=== PATIENT | male | born 1945 | race Caucasian/White ===

== ENCOUNTER 2021-04-18 17:11 | Outpatient (REF) | payer MEDICARE, BC, SELFPAY ==
[2021-04-21 08:57] LABS: PSA, Diagnostic 0.2 ng/mL
== END 2021-04-18 17:12 | disposition home or self-care (01) ==
LOC: NCHCN 17:11
PROVIDERS: Visit Provider Family Medicine
DX: Z85.46 Personal history of malignant neoplasm of prostate (principal)
CPT/HCPCS: 84153

== ENCOUNTER 2021-05-23 17:19 | Outpatient (REF) | payer MEDICARE, BC, SELFPAY ==
[2021-05-23 14:58] LABS: Anion Gap 9.1 mmol/L (3-11); BUN 16 mg/dL (7-18); CO2 26.9 mmol/L (21.0-32.0); CREATININE 0.9 mg/dL (0.70-1.30); Chloride 106 mmol/L (98-107); Glucose 160 mg/dL (74-106); Potassium 4.1 mmol/L (3.5-5.1); Sodium 142 mmol/L (136-145)
== END 2021-05-23 17:20 | disposition home or self-care (01) ==
LOC: NCHCN 17:19
PROVIDERS: Visit Provider Family Medicine
DX: E11.43 Type 2 diabetes mellitus with diabetic autonomic (poly)neuropathy (principal); E78.5 Hyperlipidemia, unspecified; I10 Essential (primary) hypertension
CPT/HCPCS: 80048

== ENCOUNTER 2022-04-09 01:46 | Outpatient (CLI) | payer MEDICARE, BC, SELFPAY ==
--- OUTSIDE RECORDS SUMMARY | 2022-04-09 01:50 | XMS_ITS | Encounter Summary ---
:1945 Author Organization [facility] Address [address] [place] [address] Care Team Providers Name Role Phone Unavailable Primary Care Provider Unavailable Encounter Details Date Type Department Care Team Description 04/08/2022 Lab Requisition [facility] Outr Resulting Lab, Pathology & Laboratory Provider [facility] [address] [place] [address] Social History Tobacco Use Types Packs/Day Years Used Date Never Assessed Sex Assigned at Date Recorded Not on file documented as of this encounter Plan of Treatment Not on filedocumented as of this encounter Procedures Procedure Name Priority Date/Time Associated Diagnosis Comme nts TESTOSTERONE Routine 04/08/2022 11:20 EDT Results for this procedure are i n the results section . documented in this encounter Results TESTOSTERONE (04/08/2022 11:20 EDT) Pathologist Sig nature Testosterone 471 229 - 902 ng/dL [facility] Specimen Blood - Venous blood (substance) Narrative [facility] - 04/08/2022 23:11 EDT The results of this assay can be falsely elevated due to the consumption of Biotin. Performing Organization Address City/State/ZIP Code Phon e Number [facility] [address] [place] [address] SERVICES documented in this encounter Visit Diagnoses Not on filedocumented in this encounter
--- OUTSIDE RECORDS SUMMARY | 2022-04-09 01:50 | XMS_ITS | Encounter Summary ---
:1945 Author Organization [facility] Address [address] [place] [address] Care Team Providers Name Role Phone Unavailable Primary Care Provider Unavailable Encounter Details Date Type Department Care Team Description 04/19/2021 Lab Requisition [facility] Outr Resulting Lab, Pathology & Laboratory Provider [facility] [address] [place] [address] Social History Tobacco Use Types Packs/Day Years Used Date Never Assessed Sex Assigned at Date Recorded Not on file documented as of this encounter Plan of Treatment Not on filedocumented as of this encounter Procedures Procedure Name Priority Date/Time Associated Comments Diagnosis PSA TOTAL, Routine 04/18/2021 14:35 Results for this DIAGNOSTIC EDT procedure are i n the results section. documented in this encounter Results PSA TOTAL, DIAGNOSTIC (04/18/2021 14:35 EDT) Pathologist Sig nature PSA 0.2 ng/mL [facility] Specimen Blood - Venous blood (substance) Narrative [facility] - 04/21/2021 8:53 EDT NOTE: Serum PSA concentration should not be in terpreted as absolute evidence for the presence or absence of malignant disease. Assayed on Siemens ADVIA Centaur XPT usi ng chemiluminescent technology.??Values obtained by using different assay methods cannot be used interchangeably. Performing Organization Address City/State/ZIP Code Phon e Number [facility] [address] [place] [address] SERVICES documented in this encounter Visit Diagnoses Not on filedocumented in this encounter
--- OUTSIDE RECORDS SUMMARY | 2022-04-09 01:50 | XMS_ITS | Encounter Summary ---
:1945 [place] [address] Care Team Providers Name Role Phone Unavailable Primary Care Provider Unavailable Encounter Details Date Type Department Care Team Description 04/07/2017 Ancillary Procedure [facility] [place] [address] HEMATOLOGY/ONCOLOGY [phone] [place], [place] [address] (Wo rk) Social History Tobacco Use Types Packs/Day Years Used Date Never Assessed Sex Assigned at Date Recorded Not on file documented as of this encounter Plan of Treatment Upcoming Encounters Date Type Specialty Care Team Description 04/14/2022 Office Visit Hematology and Oncology Darnell James MD [facility] HEMATOLOGY/[place] [address] Ema Vaughn APRN [facility] [place] [address] documented as of this encounter Procedures Procedure Name Priority Date/Time Associated Diagnosis Comme nts FILM LIBRARY Routine 04/07/2017 12:00 AM Results for this STORAGE ONLY EDT procedure are i n NUCLEAR MEDICINE the results section. documented in this encounter Results Film Library- Storage Only nuclear medicine (04/07/2017 12:00 AM EDT) Specimen (Source) Anatomical Location Collection Method / Collectio n Time Received Time / Laterality Volume Narrative [facility] - 05/19/2021 2:19 PM EDT This exam is auto-finalizing. It's purpo se is for storage only. Darnell Colunga MD IMNino FILM LIBRARY ORDERABLES Performing Organization Address City/State/ZIP Code Phon e Number [facility] [place], [place] documented in this encounter Visit Diagnoses Not on filedocumented in this encounter
--- OUTSIDE RECORDS SUMMARY | 2022-04-09 01:50 | XMS_ITS | Encounter Summary ---
:1945 Author Organization [facility] [place] [address] Care Team Providers Name Role Phone Toño Rodriguez MD Primary Care Provider Encounter Details Date Type Department Care Team Description 10/06/2021 Telephone Hematology/Oncology at [facility] [address] [phone] Social History Tobacco Use Types Packs/Day Years Used Date Former Smoker Quit: 1954 Smokeless Tobacco: Never Used Sex Assigned at Date Recorded Not on file documented as of this encounter Plan of Treatment Upcoming Encounters Date Type Specialty Care Team Description 04/14/2022 Office Visit Hematology and Oncology Darnell James MD [facility] DR HEMATOLOGY/[place] [address] Ema Vaughn APRN [facility] DR [place] [address] documented as of this encounter Visit Diagnoses Not on filedocumented in this encounter Care Teams Program And Research Coordinator Relationship Specialty Start Date End Date Toño Rodriguez MD PCP - General Emergency Medicine 05/02/21 [address] [place], [place] [id number] documented as of this encounter
--- OUTSIDE RECORDS SUMMARY | 2022-04-09 01:50 | XMS_ITS | Clinical Summary ---
:1945 Author Organization [facility] Address [address] [place] [address] Care Team Providers Name Role Phone Unavailable Primary Care Provider Unavailable Encounters Date Type Specialty Care Team Description 04/08/2022 Lab Requisition Clinical Laboratory Outr Resulting Lab , Provider from Last 3 Months Social History Tobacco Use Types Packs/Day Years Used Date Never Assessed Sex Assigned at Date Recorded Not on file Plan of Treatment Health Maintenance Due Date Last Done Comments Hepatitis C Screen 1945 COVID-19 Vaccine (1) 1948 Fall Risk Screening 2008 Procedures Procedure Name Priority Date/Time Associated Diagnosis Comme nts TESTOSTERONE Routine 04/08/2022 11:20 EDT Results for this procedure are i n the results section . from Last 3 Months Results TESTOSTERONE (04/08/2022 11:20 EDT) Pathologist Sig nature Testosterone 471 229 - 902 ng/dL [facility] Specimen Blood - Venous blood (substance) Narrative [facility] - 04/08/2022 23:11 EDT The results of this assay can be falsely elevated due to the consumption of Biotin. Performing Organization Address City/State/ZIP Code Phon e Number [facility] [address] [place] [address] SERVICES from Last 3 Months
--- OUTSIDE RECORDS SUMMARY | 2022-04-09 01:50 | XMS_ITS | Encounter Summary ---
:1945 Author Organization [facility] Address [address] [place] [address] Care Team Providers Name Role Phone Toño Rodriguez MD Primary Care Provider Reason for Referral Consultation (Routine) - Authorized Specialty Diagnoses / Procedures Referred By Contact Refer red To [facility] Diagnoses Neck pain neck pain/ ? imaging/ ? injection Carri Raymundo MD [facility] [address] [place] [address] [place] [address] Phone: Fax: Referral ID Status Reason Start Expiration Visits Visits Date Date Requested Authorized [id number] Authorized Consult, 02/18/2022 02/18/2023 12 12 Test & Treat PCP Updated and/or Approved Encounter Details Date Type Department Care Team Description 02/18/2022 Transcribe Orders eDH Incoming Referra ls Carri Raymundo MD Neck pain [phone] [address] [place], [place] [address] (Wo rk) Social History Tobacco Use Types Packs/Day Years Used Date Former Smoker Quit: 1956 Smokeless Tobacco: Never Used Sex Assigned at Date Recorded Not on file documented as of this encounter Plan of Treatment Upcoming Encounters Date Type Specialty Care Team Description 04/14/2022 Office Visit Hematology and Oncology Darnell James MD [facility] HEMATOLOGY/[place] [address] Ema Vaughn APRN [facility] [place] [address] Scheduled Referrals Name Type Priority Associated Diagnoses Order S chedule Referral to Spine Outpatient Referral Routine Neck pain Ord ered: Center 02/18/2022 documented as of this encounter Visit Diagnoses Diagnosis Neck pain Cervicalgia documented in this encounter Care Teams Corn Grinder Relationship Specialty Start Date End Date Toño Rodriguez MD PCP - General Emergency Medicine 05/02/21 [address] [place] [address] documented as of this encounter
--- OUTSIDE RECORDS SUMMARY | 2022-04-09 01:50 | XMS_ITS | Encounter Summary ---
:1945 Author Organization [facility] [place] [address] Care Team Providers Name Role Phone Toño Rodriguez MD Primary Care Provider Encounter Details Date Type Department Care Team Description 10/07/2021 Office Visit Hematology/Oncology Mona Colunga MD [facility] DR HEMATOLOGY/[place] [address] Malignant neoplasm of prostate; at [facility], Shivani Stein APRN [address] [place] [address] [place] [address] Other specified disorders of bone densit y and structure, other site [address] [place] [phone] Social History Tobacco Use Types Packs/Day Years Used Date Former Smoker Quit: 1956 Smokeless Tobacco: Never Used Sex Assigned at Date Recorded Not on file documented as of this encounter Last Filed Vital Signs Vital Sign Reading Time Taken Comments Blood Pressure 164/97 10/07/2021 1:03 PM EST Pulse 77 10/07/2021 1:03 PM EST Temperature 36.4 ??C (97.5 ??F) 10/07/2021 1:03 PM EST Respiratory Rate 18 10/07/2021 1:03 PM EST Oxygen Saturation 98% 10/07/2021 1:03 PM EST Inhaled Oxygen Concentration - - Weight 95.7 kg (211 lb) 10/07/2021 1:03 PM EST Height 190 cm (6' 2.8) 10/07/2021 1:03 PM EST Body Mass Index 26.51 10/07/2021 1:03 PM EST documented in this encounter Progress Notes Shivani Kumari, TRAIN ATTENDANT - 10/07/2021 1:00 PM EST Hematology & Medical Oncology [address] [address] Angel returns today for follow up of prostate cancer Diagnosis: Prostatic adenocarcinoma, initial diagnosis in February 2017, Ashley 4+5, PSA 6, Stage IIIC,T1c, N0, M0, PSA: Less than 10, [place] group 5 HPI:Angel Guerrero is 76 y.o.transferring his care for prostate cancer to [facility]. Oncological history: - 02/2017 elevated PSA who underwent prostate biopsy 03/16/17 which demonstrated very high risk prostate cancer with 6/12 cores positive, gg 5+4= 9 in 2 (left apex), gg 4+4=8 / (lef mid), gg4+3=7 (left base), HGPIN 1/[address] and bone scan negative for metastatic disease. Patient here to discuss treatment options. PSA 12/2016 7.68 12/2015 6.67 11/2013 2.86 -04/16/2017 completed radiation to both breast Dr. Siegel, radiation oncologist -04/16/[address] Mcgowan started bicalutamide 50 mg a day -04/29/17- started leuprolide 22.5 mg -09/03/2017 completed IMRT to prostate/pelvis -04/27/2018 last dose of leuprolide 22.5 mg -07/22/18 leuprolide d/daniel due to severe fatigue -06/04/[address] Mcgowan Interval History/Subjective:(10/07/21) Overall Angel is feeling well. Denies any new illnesses or hospitalizations since we saw him last. Hedenies any new pain or urinary difficulties. Appetite is good. No cough, shortness of breath, chest pain or edema. No fevers, chills or signs of infection. No other focal complaints today. PMH: Diabetes, hypertension, carotid artery stenosis s/p carotidoctomy Social History: Non-smoker, drinks alcohol occasionally, lives at home with his . Recently movedfrom [place] to be close to his daughter. Family History: Mother and sister had stomach cancer. Allergies: Allergies Allergen Reactions ??? Penicillins Medications: Your Medications as of October 07, 2021 1:07 PM You have not been prescribed any medications. Review of Systems: Constitutional: Positive for hot flashes HEENT: Negative for sore throat, mouth sores and trouble swallowing. Eyes: Negative. Respiratory: Negative for cough, shortness of breath and wheezing. Cardiovascular: Negative for chest pain, palpitations and leg swelling. Gastrointestinal: Negative for nausea, vomiting, abdominal pain, diarrhea, constipation and abdominal distention. Genitourinary: Negative for dysuria and difficulty urinating. Musculoskeletal: Low back pain skin: Negative. Neurological: Negative. Hematological: Negative for adenopathy. PE: General: AAAx3, in NAD Head: Normocephalic, without obvious abnormality, atraumatic Eyes: PERRL, conjunctiva/corneas clear Ears: Nose: Throat: Neck: Supple, symmetrical, trachea midline, no adenopathy, thyroid: not enlarged, symmetric, no tenderness/mass/nodules. Back: Symmetric, no curvature, ROM normal, no CVA tenderness Lungs: Clear to auscultation bilaterally, respirations unlabored Chest Wall: No tenderness or deformity Heart: Regular rate and rhythm, S1, S2 normal, no murmur, rub or gallop Abdomen: Soft, non-tender, bowel sounds active all four quadrants, no masses, no organomegaly. Thereis no appreciable ascites. Rectal exam deferred Extremities: Extremities normal, atraumatic, no cyanosis or edema Pulses: Skin: Skin color, texture, turgor normal, no rashes or lesions Lymph nodes: Cervical, supraclavicular, and axillary nodes normal Neurologic: Normal Vitals BP (!) 164/97 (Patient Position: Sitting) Pulse 77 Temp 36.4 ??C (97.5 ??F) (Temporal) Resp 18 Ht 190 cm (6' 2.8) Wt 95.7 kg (211 lb) SpO2 98% BMI 26.51 kg/m?? Pathology: Pathology: FINAL DIAGNOSIS Received [place] [address] ([id number] ; 03/16/17): A. Prostate, left lateral base, biopsy: - Adenocarcinoma, [place] score 7 (4+3, group 3); 1 of 1 core involved, 90% tissue involved by tumor. -Ductal differentiation present -Perineural invasion is identified. -See comment B. Prostate, left lateral mid, biopsy: - Adenocarcinoma, [place] score 7 (4+4, group 4); 1 of 1 core involved, 50% tissue involved by tumor. C. Prostate, left lateral apex, biopsy: - Adenocarcinoma, [place] score 9 (4+5, group 5); 1 of 1 core involved, 20% tissue involved by tumor. - Perineural invasion is identified. D. Prostate, left base, biopsy: - Adenocarcinoma, Ashley score 7 (4+3, group 3); 1 of 1 core involved, 70% tissue involved by tumor. E. Prostate, left mid, biopsy: - Adenocarcinoma, Ashley score 7 (4+4, group 2); 1 of 1 core involved, 10% tissue involved by tumor. - Perineural invasion is identified. F. Prostate, left apex, biopsy: - Adenocarcinoma, Ashley score 7 (4+4, group 4); 1 of 1 core involved, 20% tissue involved by tumor. - Perineural invasion is identified. G. Prostate, right base, biopsy: - Benign prostatic tissue. H. Prostate, right mid, biopsy: - Atypical small acinar proliferation. I. Prostate, right apex, biopsy: - Benign prostatic tissue. J. Prostate, right lateral base, biopsy: - Atypical small acinar proliferation, adjacent to high grade prostatic intraepithelial neoplasia (HGPIN). K. Prostate, right lateral mid, biopsy: - Benign prostatic stroma; no prostatic glands are identified Labs: PSA testosteron 10/07/21 pending 04/18/21 0.2 06/04/20 0.3 Imagin09/24/2018 lumbar MRI: IMPRESSION: 1. ??Moderate to severe central canal narrowing at the L3-L4 and L4-L5 levels as detailed above. 2. ??L5-S1 paramedian disc protrusion impinging on the transiting left S1 nerve root and causing moderate to severe left neuroforaminal canal stenosis. Correlate with left L5-S1 radiculopathy. [facility] - 04/06/2017 5:39 PM EDT?? CT AP: IMPRESSION: 1. ??No CT findings of metastatic disease. 2. ??Atherosclerosis. 3. ??Mild splenomegaly COMPARISON: CT the abdomen and pelvis from April 06, 2017 FINDINGS: There is a focus of increased activity within the left 10th proximal rib at the transverse process articulation, correlating to an area of hypertrophic change on prior CT. Focus of increased activity within the left mid to lower cervical spine, likely degenerative in nature. Focus of increased activity within the left mandible, likely due to dental inflammatory change. There is otherwise normal distribution of activity throughout the skeleton [facility] - 04/07/2017 3:50 PM EDT?? IMPRESSION: No definite evidence of osseous metastatic disease. Assessment and Plan: Diagnosis:Prostatic adenocarcinoma, initial diagnosis in February 2017, Ashley 4+5, PSA 6, Stage IIIC, T1c, N0, M0, PSA: Less than 10, [place] group 5 Treatment: -04/29/17-04/27/18 lupron -09/03/2017completed XRT for prostate/pelvic Mr. Guerrero was diagnosed with high risk prostatic adenocarcinoma related more than 4 years ago. He underwent concurrent radiation and androgen deprivation for total of 15 months. ADT was interrupted due to severe fatigue. Last PSA on April 182020 was 0.2. Clinically, he is minimally symptomatic with weak urinary stream No evidence of cancer recurrence. We will continue observation. He would like to get labs a week ahead of time close to his home. Given standing lab Orders. We will schedule his next appointment in 6 months with CBC, CMP, PSA and testosterone. #DEXA scan: Discussed today. He would like to proceed. #Degenerative disc disease/spinal stenosis:follow with Dr. Rodriguez #Diabetes: Follows with Dr. Rodriguez Plan: 1. DEXA scan prior to next visit. 2. Next visit in 6 months with CBC, cMP, PSA, testosterone. Labs to be done a week ahead of time at [facility]. He has lab slips. He will have today's labs drawn tomorrow. Nursing to check for PSA level. Angel voiced understanding of the plan and was given an opportunity to ask questions which I answeredto the best of my ability. Angel understands he can call the clinic between visits with any questions/concerns or new symptoms. Shivani Kumari MSN, TRAIN ATTENDANT, AOCNP Medical Oncology documented in this encounter Plan of Treatment Upcoming Encounters Date Type Specialty Care Team Description 04/14/2022 Office Visit Hematology and Oncology Darnell James MD [facility] DR HEMATOLOGY/[place] [address] Ema Vaughn APRN [facility] [place] [address] documented as of this encounter Visit Diagnoses Diagnosis Malignant neoplasm of prostate Other specified disorders of bone densit y and structure, other site documented in this encounter Care Teams Inventory Technician Relationship Specialty Start Date End Date Toño Rodriguez MD PCP - General Emergency Medicine 05/02/21 [address] [place] [address] documented as of this encounter
--- OUTSIDE RECORDS SUMMARY | 2022-04-09 01:50 | XMS_ITS | Encounter Summary ---
:1945 [place] [address] Care Team Providers Name Role Phone Unavailable Primary Care Provider Unavailable Encounter Details Date Type Department Care Team Description 04/06/2017 Ancillary Procedure Radiology Library at Sergio Rodriguez MD [facility] [address] [place] [address] [facility] [phone] [place] [address] (Work) [phone] Social History Tobacco Use Types Packs/Day Years Used Date Never Assessed Sex Assigned at Date Recorded Not on file documented as of this encounter Plan of Treatment Upcoming Encounters Date Type Specialty Care Team Description 04/14/2022 Office Visit Hematology and Oncology Darnell James MD [facility] DR HEMATOLOGY/[place] [address] Ema Vaughn APRN [facility] [place] [address] documented as of this encounter Procedures Procedure Name Priority Date/Time Associated Diagnosis Comme nts FILM LIBRARY Routine 04/06/2017 12:00 AM Results for this STORAGE ONLY CT EDT procedure ar e in ABDOMEN AND PELVIS the resul ts section. documented in this encounter Results Film Library- Storage Only CT Abdomen & Pelvis (04/06/2017 12:00 AM EDT) Specimen (Source) Anatomical Location Collection Method / Collectio n Time Received Time / Laterality Volume Narrative [facility] - 05/12/2021 3:42 PM EDT This exam is auto-finalizing. It's purpo se is for storage only. Toño Rodriguez MD IMG FILM LIBRARY ORDERABLES Performing Organization Address City/State/ZIP Code Phon e Number [facility] [place], [place] documented in this encounter Visit Diagnoses Not on filedocumented in this encounter
--- OUTSIDE RECORDS SUMMARY | 2022-04-09 01:50 | XMS_ITS | Clinical Summary ---
:1945 Author Organization [facility] [address] Care Team Providers Name Role Phone Toño Rodriguez MD Primary Care Provider Allergies Active Allergy Reactions Severity Noted Date Comments Penicillins 06/12/2021 Medications Medication Sig Dispensed Refills Start Date End Date Status allopurinoL (Zyloprim) TAKE 1 TABLET BY 0 09/17/2021 Active 300 mg Tablet MOUTH EVERY EVENING amLODIPine (Norvasc) 10 Take 10 mg by 0 03/25/2020 Active mg Tablet mouth Daily. atenoloL (Tenormin) 50 TAKE 1 TABLET BY 0 04/19/2021 Active mg Tablet MOUTH EVERY DAY atorvastatin (Lipitor) Take 80 mg by 0 Active 80 mg Tablet mouth. lisinopriL (Zestril) 10 TAKE 2 TABLETS BY 0 05/27/20 21 Active mg Tablet MOUTH EVERY DAY cholecalciferol, Take 1,000 Units 0 Active Vitamin D3, 25 mcg by mouth Daily. 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 02/18/2022 Transcribe Orders Primary Care Carri Raymundo Neck pai n MD from Last 3 Months Social History Tobacco Use Types Packs/Day Years Used Date Former Smoker Quit: 1954 Smokeless Tobacco: Never Used Sex Assigned at Date Recorded Not on file Last Filed Vital Signs Vital Sign Reading [...] Mass Index 26.51 10/07/2021 1:03 PM EST Plan of Treatment Upcoming Encounters Date Type Specialty Care Team Description 04/14/2022 Office Visit Hematology and Oncology Darnell James MD [facility] DR HEMATOLOGY/[place] [address] Ema Vaughn APRN [facility] [place] [address] Health Maintenance Due Date Last Done Comments Covid-19 Vaccine (#1) 1948 Hepatitis C Screening 1961 Tdap adult 1962 Tetanus vaccine 1962 Zoster vaccine (1 of 2) 1993 Advance Directive 1998 Pneumoccocal Vaccine: 65+ (1 - PCV) 2008 Influenza (Flu) vaccine (1 of 1 - Influenza standard 05/21/2022 series) Procedures Procedure Name Priority Date/Time Associated Diagnosis Comme nts LAB SCAN 04/08/2022 12:00 AM Results for this EDT procedure are i n the results section . LAB SCAN 02/18/2022 12:00 AM Results for this EDT procedure are i n the results section . from Last 3 Months Results SCAN DOC: LAB (04/08/2022 12:00 AM EDT)Only the most recent of2 resultswithin the time period is included. Narrative This result has an attachment that is no t available. Unknown MEDIA MGR SCAN EXT ORDR/RSLT from Last 3 Months Insurance Payer Benefit Plan / Subscriber ID Effective Phone Address T ype Group Dates ANTHEM MEDICARE ANTHEM MEDICARE [id number] 2010-Prese [address] SUPPLEMENT SUPPLEMENT nt [facility] [place] [address] MEDICARE MEDICARE PART A [id number] 2021-Prese [id number] [facility] [place] [address] Care Teams Salon Sales Consultant Relationship Specialty Start Date End Date Toño Rodriguez MD PCP - General Emergency Medicine 05/02/21 [address] [place] [address]
--- OUTSIDE RECORDS SUMMARY | 2022-04-09 01:50 | XMS_ITS | Encounter Summary ---
:1945 [place] [address] Care Team Providers Name Role Phone Toño Rodriguez MD Primary Care Provider Encounter Details Date Type Department Care Team Description 03/05/2022 Orders Only Hematology/Oncology at Ema Vaughn M alignant neoplasm of [address] [address] RADIATION ONCOLOGY [phone] [place], [place] [address] Social History Tobacco Use Types Packs/Day Years Used Date Former Smoker Quit: 1956 Smokeless Tobacco: Never Used Sex Assigned at Date Recorded Not on file documented as of this encounter Plan of Treatment Upcoming Encounters Date Type Specialty Care Team Description 04/14/2022 Office Visit Hematology and Oncology Darnell James MD [facility] HEMATOLOGY/[place] [address] Ema Vaughn BLOOD SPLATTER ANALYST [facility] [place] [address] Scheduled Orders Name Type Priority Associated Diagnoses Order S chedule DXA Central Spine, Imaging Routine Malignant neoplasm of Expected: 04/04/2022, Hip, and/or Whole Body prostate Expir es: 09/04/2022 (Generic) documented as of this encounter Visit Diagnoses Diagnosis Malignant neoplasm of prostate documented in this encounter Care Teams Director Check Relationship Specialty Start Date End Date Toño Rodriguez MD PCP - General Emergency Medicine 05/02/21 [address] [place] [address] documented as of this encounter
--- OUTSIDE RECORDS SUMMARY | 2022-04-09 01:50 | XMS_ITS | Encounter Summary ---
:1945 Author Organization [facility] [place] [address] Care Team Providers Name Role Phone Toño Rodriguez MD Primary Care Provider Encounter Details Date Type Department Care Team Description 04/03/2022 [facility] [address] [phone] Social History Tobacco Use Types Packs/Day Years Used Date Former Smoker Quit: 1956 Smokeless Tobacco: Never Used Sex Assigned at Date Recorded Not on file documented as of this encounter Miscellaneous Notes Telephone Encounter - Lia Serrato - 04/03/2022 8:56 AM EDT Angel is due back for a 6M FUV in March, which will include a dexa scan. He is scheduled at [facility] at their next available which isn't until 05/28. I left Jordan message requesting he return my call to [facility] and see if he would be willing to go to another [facility] if I can get him in sooner than 05/28. documented in this encounter Plan of Treatment Upcoming Encounters Date Type Specialty Care Team Description 04/14/2022 Office Visit Hematology and Oncology Darnell James MD [facility] DR HEMATOLOGY/[place] [address] Ema Vaughn, FABIANO [facility] [place] [address] documented as of this encounter Visit Diagnoses Not on filedocumented in this encounter Care Teams Web Production Manager Relationship Specialty Start Date End Date Toño Rodriguez MD PCP - General Emergency Medicine 05/02/21 [address] [place] [address] documented as of this encounter
--- OUTSIDE RECORDS SUMMARY | 2022-04-09 01:50 | XMS_ITS | Encounter Summary ---
:1945 Author Organization [facility] [place] [address] Care Team Providers Name Role Phone Toño Rodriguez MD Primary Care Provider Encounter Details Date Type Department Care Team Description 05/08/2021 Abstract Hematology and Oncol ogy at [facility] [place] [address] Social History Tobacco Use Types Packs/Day Years Used Date Never Assessed Sex Assigned at Date Recorded Not on file documented as of this encounter Plan of Treatment Upcoming Encounters Date Type Specialty Care Team Description 04/14/2022 Office Visit Hematology and Oncology Darnell James MD [facility] DR HEMATOLOGY/[place] [address] Ema Vaughn APRN [facility] [place] [address] documented as of this encounter Visit Diagnoses Not on filedocumented in this encounter Care Teams Health Evaluator Relationship Specialty Start Date End Date Toño Rodriguez MD PCP - General Emergency Medicine 05/02/21 [address] [place], [place] [address] documented as of this encounter
== END 2022-04-09 01:47 | disposition home or self-care (01) ==
LOC: LBO 01:47
PROVIDERS: PCP Family Medicine; Visit Provider Internal Medicine

== ENCOUNTER 2022-04-13 16:54 | Outpatient (REF) | payer MEDICARE, BC, SELFPAY ==
[2022-04-13 16:24] LABS: HCT 46.8 % (40.0-50.0); HGB 15.3 g/dL (13.5-17.5); MCH 27.5 pg (27.0-33.0); MCHC 32.7 % (32.0-36.0); MCV 84 fL (80-95); MPV 11.2 fL (8.0-11.0); Platelet Count 145 10^3/uL (130-400); RBC 5.56 10^6/uL (4.36-5.78); WBC 4.89 10^3/uL (4.4-10.8)
[2022-04-13 16:39] LABS: Anion Gap 11.3 mmol/L (3-11); BUN 14 mg/dL (7-18); CO2 24.7 mmol/L (21.0-32.0); Calcium 8.9 mg/dL (8.5-10.1); Chloride 106 mmol/L (98-107); Glucose 123 mg/dL (74-106); Sodium 142 mmol/L (136-145)
== END 2022-04-13 16:55 | disposition home or self-care (01) ==
LOC: NCHCN 16:54
PROVIDERS: PCP Family Medicine; Visit Provider Family Medicine
DX: I10 Essential (primary) hypertension (principal); Z00.00 Encounter for general adult medical examination without abnormal findings
CPT/HCPCS: 80048; 85027

== ENCOUNTER → 2022-10-01 11:20 | Outpatient (BNVA) | payer MEDICARE, BC, SELFPAY | PROVIDERS: PCP Family Medicine; Referring Provider Family Medicine; Visit Provider Physical Therapy Assistant | DX: Z12.11 Encounter for screening for malignant neoplasm of colon (principal); Z80.0 Family history of malignant neoplasm of digestive organs ==

== ENCOUNTER 2023-04-06 11:32 | Emergency (ER) | payer MEDICARE, BC, SELFPAY ==
[2023-04-06 11:36] VITALS: BP 132/80; PULSE 80; RESP 20; TEMP 36.7; O2SAT 95
--- NOTE | 2023-04-06 11:59 | ED.GENADUL_ITS ---
Discharge Plan Disposition Patient Disposition: Home Condition: Stable Discharge Details Clinical Impression: Acute conjunctivitis of right eye Primary Care Provider: Toño Rodriguez ED Provider: Henrry Villarreal Home Meds and New Rx's Prescriptions: New ofloxacin 0.3 % drops See Rx Instructions .ROUTE .COMPLEX Qty: 10 0RF Rx Instructions: put 1-2 drps into affected eye(s) every 2-4 h x 2 days, then 1-2 drps 4 times/day days 3-7 Continued bisacodyl [Dulcolax (bisacodyl)] 5 mg tablet,delayed release (DR/EC) 5 mg PO ONCE Qty: 4 0RF Rx Instructions: Take according to provider's instructions for colonoscopy prep. polyethylene glycol 3350 17 gram/dose powder 17 g PO ONCE Qty: 238 0RF Rx Instructions: To be taken as directed by prescriber's office for colonoscopy prep. atenolol 50 mg tablet 50 mg PO DAILY allopurinol 300 mg tablet 300 mg PO DAILY lisinopril 10 mg tablet 20 mg PO DAILY atorvastatin 80 mg tablet 80 mg PO DAILY cholecalciferol (vitamin D3) 25 mcg (1,000 unit) capsule 25 mcg PO DAILY Discharge Instructions Instructions: Conjunctivitis (ED) Additional Instructions: IF you are not improving within a week follow up with [facility] [phone] if you feel more ill, have severe worsening pain or decrease in vision return to the emergency department Medical Decision Making 77 yo male who states he has frequent allergies and causes him to rub his eyes and the last 2 days has had discharge and right eye redness. NO trauma, no changes in vision, no facial swelling or periorbital swelling, and no deep eye pain. He appears well caox4 speaking in full sentences. Left eye is normal appearing, no periorbital swelling bilaterally, perrl, eomi in both eyes. Her right conjunctiva is erythematous, no discharge, iop 17 in both eyes, no iritis. Suspect conjunctivitis will start on ofloxacin and advised if not improving to follow up with [facility] eye [facility], return precautions given. Differential Diagnosis Differential Diagnosis: conjunctivitis, allergies HPI General Mode of arrival: ambulatory . Date/Time Provider Initiated Documentation: 04/06/23 11:33 . Limitations to Documentation: no limitations . Information obtained by: patient . History of Present Illness 77 year old M presents to the emergency department with the chief complaint of right eye discomfort, described as mild, Patient started experiencing this day(s) (2) and it has been constant. No relieving factors improve symptom(s), No exacerbating factors reported . Patient notes no other symptoms.. Patient did receive the following treatments prior to arrival, none Related Data Home Medications Medication Instructions Recorded Confirmed allopurinol 300 mg tablet 300 mg PO DAILY 01/02/22 04/06/23 atenolol 50 mg tablet 50 mg PO DAILY 01/02/22 04/06/23 atorvastatin 80 mg tablet 80 mg PO DAILY 01/02/22 04/06/23 cholecalciferol (vitamin D3) 25 25 mcg PO DAILY 01/02/22 04/06/23 mcg (1,000 unit) capsule lisinopril 10 mg tablet 20 mg PO DAILY 01/02/22 04/06/23 bisacodyl 5 mg tablet,delayed 5 mg PO ONCE #4 tabs 10/01/22 04/06/23 release (Dulcolax (bisacodyl)) polyethylene glycol 3350 17 17 g PO ONCE #238 grams 10/01/22 04/06/23 gram/dose oral powder ofloxacin 0.3 % eye drops See Rx Instructions ophthalmic 04/06/23 (eye) .COMPLEX #10 mL Previous Rx's Medication Instructions Recorded bisacodyl 5 mg tablet,delayed 5 mg PO ONCE #4 tabs 10/01/22 release (Dulcolax (bisacodyl)) polyethylene glycol 3350 17 17 g PO ONCE #238 grams 10/01/22 gram/dose oral powder ofloxacin 0.3 % eye drops See Rx Instructions ophthalmic 04/06/23 (eye) .COMPLEX #10 mL Allergies Allergy/AdvReac Type Severity Reaction Status Date / Time penicillin V Allergy Unknown Other (See Verified 10/01/22 11:22 Comment) General Stated Complaint: EyeProblem MO: 4 Review of Systems All systems reviewed & are unremarkable except as noted in HPI and below Constitutional Constitutional: Denies chills, Denies fever(s) and Denies weakness Eyes Eyes: Denies loss of vision Cardiovascular Cardiovascular: Denies chest pain and Denies dyspnea Respiratory Respiratory: Denies cough and Denies dyspnea Gastrointestinal Gastrointestinal: Denies abdominal pain, Denies nausea and Denies vomiting Musculoskeletal Musculoskeletal: Denies joint swelling Neurologic Neurologic: Denies loss of vision and Denies weakness PFSH All Active Problems (Updated 04/06/23 @ 11:59 by Henrry Villarreal MD) Acute conjunctivitis of right eye (Acute) Carotid artery disease (Acute) ASCVD (arteriosclerotic cardiovascular disease) (Acute) Screening for colon cancer (Acute) Medical History (Updated 04/06/23 @ 11:59 by Henrry Villarreal MD) Diabetes Eczema Erectile dysfunction Gout History of prostate cancer Hyperlipidemia Hypertension Microalbuminuria Mitral regurgitation Osteoarthritis Spinal stenosis, lumbar region with neurogenic claudication Splenomegaly Family History (Updated 10/01/22 @ 16:29 by SUMI Lutz) Mother Colon cancer Social History (Updated 10/01/22 @ 16:31 by SUMI Lutz) Smoking/Tobacco Use Status: Former Tobacco Use Smoking risk assessment performed?: Yes Alcohol Intake: current Alcohol Intake frequency: holidays/special occasions only Substance use type: does not use Exam Const General: no acute distress Orientation: alert HENMT Head: normal to inspection Ears: external ears normal General nose exam: external nose normal Mouth: moist mucous membranes Eyes Alignment and Position: alignment normal Periorbital: periorbital findings normal Eyelids: eyelids normal Pupils: PERRL EOM: EOM intact bilaterally Neck Neck: normal visual inspection Resp Effort & Inspection: normal respiratory effort and able to speak in complete sentences Cardio Rate: regular rate Skin General skin exam: no rashes or lesions noted Neuro General: patient alert and patient oriented x3 Extrem General: normal to inspection Psych Mental Status: mental status grossly normal Course Vital Signs Vital signs: Vital Signs Temperature 36.7 C 04/06/23 11:36 Pulse 80 04/06/23 11:36 Respiratory Rate 20 04/06/23 11:36 Blood Pressure 132/80 04/06/23 11:36 Pulse Oximetry 95 04/06/23 11:36 Temperature 36.7 C 04/06/23 11:36 Temperature Source Oral 04/06/23 11:36 Pulse 80 04/06/23 11:36 Respiratory Rate 20 04/06/23 11:36 Blood Pressure 132/80 04/06/23 11:36 Pulse Oximetry 95 04/06/23 11:36 Oxygen Delivery Method Room Air 04/06/23 11:36 Oxygen Flow Rate 0 04/06/23 11:36 Pain Level 2 04/06/23 11:36
== END 2023-04-06 12:13 | disposition home or self-care (01) ==
PROVIDERS: Emergency Provider Emergency Medicine; PCP Family Medicine
DX: H10.31 Unspecified acute conjunctivitis, right eye (principal)
CPT/HCPCS: 99283; 99284

== ENCOUNTER 2023-04-19 11:30 | Outpatient (REF) | payer MEDICARE, BC, SELFPAY ==
[2023-04-19 15:29] LABS: HCT 46.7 % (40.0-50.0); HGB 15.9 g/dL (13.5-17.5); MCH 28.1 pg (27.0-33.0); MCV 83 fL (80-95); MPV 10.7 fL (8.0-11.0); Platelet Count 142 10^3/uL (130-400); RBC 5.65 10^6/uL (4.36-5.78); RDW 13.2 % (11.8-14.1); RDW-SD 39.3 fL; WBC 4.99 10^3/uL (4.4-10.8)
[2023-04-19 15:51] LABS: ALT 23 U/L (16-63); AST 20 U/L (15-37); Alkaline Phosphatase 104 U/L (46-116); Anion Gap 9.4 mmol/L (3-11); BUN 11 mg/dL (7-18); Bilirubin, Total 0.8 mg/dL (0.2-1.0); CO2 25.6 mmol/L (21.0-32.0); CREATININE 0.9 mg/dL (0.70-1.30); Calcium 9.6 mg/dL (8.5-10.1); Chloride 105 mmol/L (98-107); Estimated GFR 86.88 (mL/min/1.73m2); Glucose 106 mg/dL (74-106); Potassium 4.5 mmol/L (3.5-5.1); Sodium 140 mmol/L (136-145); Total Protein 7.5 g/dL (6.4-8.2); Uric Acid 5.1 mg/dL (3.5-7.2)
== END 2023-04-19 11:31 | disposition home or self-care (01) ==
LOC: NCHCN 11:30
PROVIDERS: PCP Family Medicine; Visit Provider Family Medicine
DX: E11.43 Type 2 diabetes mellitus with diabetic autonomic (poly)neuropathy (principal); I10 Essential (primary) hypertension; I25.10 Atherosclerotic heart disease of native coronary artery without angina pectoris
CPT/HCPCS: 80053; 85027; 84550

== ENCOUNTER 2023-10-01 13:32 | Outpatient (CLI) | payer MEDICARE, BC, SELFPAY ==
--- OUTSIDE RECORDS SUMMARY | 2023-10-01 13:37 | XMS_ITS | Continuity of Care Document ---
Author Name Unknown Organization [facility] Address [address] [place] [address] Care Team Providers Care Booster Pump Oiler Name Role Phone DILAN MANN Primary Care Physician Encounter [facility]BR [id number] Date(s): 01/06/23 - 01/06/23 [facility] [address] [place] [address] [place] Encounter Diagnosis Allergic rhinitis(Discharge Diagnosis) - 01/05/23 Discharge Disposition: Home or Self Care Attending Physician: SUMI Hinds Referring Physician: DILAN MANN Allergies, Adverse Reactions, Alerts Substance Reaction Severity Status penicillins Mild Active Medications allopurinol 300 mg oral tablet 300 mg = 1 tab, Oral, Daily, # 30 tab, 0 Refill(s) Start Date: 01/05/23 Status: Ordered atorvastatin 80 mg oral tablet 80 mg = 1 tab, Oral, Daily, # 30 tab, 0 Refill(s) Start Date: 01/05/23 Status: Ordered azelastine 137 mcg/inh (0.1%) nasal spray 1 sprays, Nasal, BID, # 1 EA, 2 Refill(s), Pharmacy: [id number] Start Date: 01/06/23 Stop Date: 04/06/23 Status: Ordered cetirizine 10 mg =, Oral, Daily, 0 Refill(s) Start Date: 01/06/23 Status: Ordered ketotifen 0.025% ophthalmic solution 1 drops, Eye-Both, every 12 hr, not to exceed 2 doses/day, # 7.5 mL, 1 Refill(s), Pharmacy: [facility] Start Date: 01/06/23 Stop Date: 03/07/23 Status: Ordered lisinopril 20 mg oral tablet 20 mg = 1 tab, Oral, Daily, # 30 tab, 0 Refill(s) Start Date: 01/05/23 Status: Ordered triamcinolone 0.025% topical cream 1 lex, Topical, BID, # 15 g, 0 Refill(s), Pharmacy: [id number] Start Date: 01/06/23 Stop Date: 01/20/23 Status: Ordered Vitamin D3 1000 intl units oral capsule 25 mcg = 1 cap, Oral, Daily, # 75 cap, 0 Refill(s) Start Date: 01/05/23 Status: Ordered Problem List Condition Confirmation Course Effective Dates Status Health St atus Informant Allergic rhinitis Confirmed Active Hypertension Confirmed Active Neuropathy Confirmed Active Type 2 diabetes mellitus Confirmed Active Physician Outpatient Note * SUMI Hinds: PERFORM SUMI Hinds: PERFORM, MODIFY SUMI Hinds: MODIFY, MODIFY, MODIFY Event Display: Office Clinic Note Physician Authored Date: [id number] COLE HERRERA :1945 Age:77 years Sex:Male Visit Date:01/06/2023 Primary Care Physician: DILAN MANN Chief Complaint Allergic Rhinitis History of Present Illness New patient referred to our office for Allergic rhinitis. Per referral patient has tried OTC antihistamines and Flonase/Nasonex with no relief. Patient saw Dr. Mann in the past. Patient has itchy, watery eyes every morning, runny nose, sneezing, and sinus headaches. Patient notes that it has been going on for a year, but much worse in the past 6 months. Patient does have a dog. He did try sleeping in a different bed to see if that was the cause and it didn't make a different. Patient is on Cetirizine. Patient notes that if he leaves the house it gets better. They have forced hot air. Patient does not use a humidifier at night. Patient notes that he moved up from [place] two years ago and he is living in a house that is only about 40 years old. Patient has never been allergy tested. He did see an visual merchandise manager and they did do allergy medication and that seemed to help. Patient believes his symptoms are pretty equal year round. He does spend time inside and in a barn. Patient has not done any sinus rinses. Review of Systems Fatigue?? Negative.?? Fever?? Negative.?? Weight Loss?? Negative.?? Snoring?? Negative.?? Hoarseness?? Negative.?? Glaucoma?? Negative.?? Double Vision?? Negative.?? Other eye problems?? Negative.?? Loss of taste?? Negative.?? Loss of smell?? Negative.?? Sinus trouble?? Negative.?? Difficulty swallowing?? Negative.?? High blood pressure??Positive.?? Heart failure?? Negative.?? Chest pain/Angina??Negative.?? Heart Attack?? Negative.?? Ankle/Foot swelling?? Negative.?? Shortness of breath?? Negative.?? High cholesterol?? Positive..?? Cough?? Negative.?? Diabetes?? Negative.?? Ulcer?? Negative.?? Blood in Stool ?? Negative.?? Colitis?? Negative.?? Prostate Problems?? Positive..?? Kidney Stones ?? Negative.?? Hepatitis?? Negative.?? Liver trouble?? Negative.?? Gall bladder problems?? Negative.?? Kidney infection?? Negative.?? Blood in urine?? Negative.?? Bladder infection?? Negative.?? Arthritis?? Positive..?? Fibromyalgia?? Negative.?? Bone disease?? Negative.?? Joint disease?? Negative.? ? Back problems?Positive.?? Breast (lump/tumor)?? Negative.?? Rashes?? Negative.?? Eczema?? Negative.?? Headaches?? Negative.?? Meningitis?? Negative.?? Thyroid Problems?? Negative.?? Pituitary Problems?? Negative.?? Bleeding Disorder?? Negative.?? Anemia?? Negative.?? Lymphoma?? Negative.?? Vene real Disease?? Negative.?? AIDS/HIV?? Negative.?? Cancer?Positive.?? Blood transfusion?? Negative.?? Seizures?? Negative.?? Loss of consciousness?? Negative.?? Head Injury/concussion?? Negative.??Multiple Sclerosis?? Negative.?? Nervous disorder?? Negative.?? Anxiety?? Negative.?? Depression?? Negative.?? Frequent infection?? Negative.?? Environmental allergies?? Negative.?? Hay Fever?? Negative.?? Reflux?? Negative.?? Sleep apnea?? Negative.?? Physical Exam Vitals & Measurements 6'0, 205LBS GENERAL APPEARANCE:??The patient is awake, alert, and oriented and in no acute distress, Appears nutritionally sound, Healthy in appearance, Voice is strong, with no stridor or stertor, Handling secretions without difficulty.?PSYCH:??affect normal, good eye contact, oriented to person, oriented to place, oriented to time.?NEURO:??CN's II-XII grossly intact, Gait is normal,?HEENT:??The patient is normocephalic with a normal facies with cranial nerves 2 through 12 bilaterally equal and intact. Pupils are equal and reactive to light with extraocular movements bilaterally equal and intact. There is no proptosis or enophthalmos,??EARS:, Ear exam reveals normal appearing pinna bilaterally. Mastoids are normal to palpation and nontender bilaterally. the ext ernal canal are patent, without otorrhea, with bilateral TM's mobile with no evidence of middle earfluid, middle ear masses, or retraction pockets.??NOSE:, The inferior turbinates are within normal limits, The middle meati are unremarkable with no polyps, masses or purulent discharge,??ORAL CAVITY:, no trismus, tongue and floor of mouth are normal to inspection and palpation. Mucosa is moist andhealthy throughout. the palate is intact and elevates symmetrically in midline,??OROPHARYNX:, Uvulamidline, soft palate symmetric.?NECK:??There is no palpable lymphadenopathy.?HEART:??regular rate and rhythm.?LUNGS:??clear to auscultation bilaterally, no wheezes/rhonchi/rales.?SKIN:??Flaky red rash??left postauricular. ?MUSCULOSKELETAL:??normal gait and station.?? Procedure We reviewed the exam and most likely etiologies as they relate to the patient's symptoms. We discussed allergic rhinitis in detail including the immune response and its relationship to histamine, theenvironment and foods ingested. We stressed treatment of the nose as a critical factor to help control allergic rhinitis. We discussed avoidance and possible treatment options, which includes oral and intranasal medications, including intranasal steroids. We discussed allergy testing in detail, including risks and benefits. Treatment options include continuation of medical management and/or immunotherapy.??All the patient's questions were answered in detail, patient agrees with the above plan. Assessment/Plan 1.??Allergic rhinitis??J30.9 Allergic versus nonallergic rhinitis. ??He did have prior improvement with antihistamine??and does have finding of??what appears to be likely eczema versus seborrhea behind his left ear. ??We will treat this with??triamcinolone cream. ??In regards to his allergies recommend starting??azelastine andketotifen??given symptoms of this predominantly being rhinitis versus congestion??and eye irritation. ??I??did discuss that he will need to stop this for allergy testing which he will do in [place]??given our office there is much closer for him.?? Therefore you should not improved with??triamcinolone he will let us know and may consider??treatment with??ketoconazole. Ordered: azelastine 137 mcg/inh (0.1%) nasal spray, 1 sprays, Nasal, BID, # 1 EA, 2 Refill(s), Pharmacy: [id number] ketotifen 0.025% ophthalmic solution, 1 drops, Eye-Both, every 12 hr, not to exceed 2 doses/day, # 7.5 mL, 1 Refill(s), Pharmacy: [facility] ?? Problem List/Past Medical History Ongoing Allergic rhinitis Hypertension Neuropathy Type 2 diabetes mellitus Historical No qualifying data Medications allopurinol 300 mg oral tablet, 300 mg= 1 tab, Oral, Daily atorvastatin 80 mg oral tablet, 80 mg= 1 tab, Oral, Daily lisinopril 20 mg oral tablet, 20 mg= 1 tab, Oral, Daily Vitamin D3 1000 intl units oral capsule, 25 mcg= 1 cap, Oral, Daily Allergies penicillins Social History Non smoker Electronically Signed on 01/06/23 12:52 PM SUMI Hinds Patient Care team information Care Team Personnel Name: DILAN MANN Position: No Access Member Role: Primary Care Physician Address: Address: [address] [address]- [place]
--- OUTSIDE RECORDS SUMMARY | 2023-10-01 13:37 | XMS_ITS | Continuity of Care Document ---
Author Name Unknown Organization [facility] Address [address] [place] [address] Care Team Providers Care Adding Machine Operator Name Role Phone Toño Rodriguez Primary Care Physician Encounter [facility] Date(s): 07/02/22 - 07/02/[address] [phone] Discharge Disposition: Home or Self Care Attending Physician: Ema Vaughn APRN Admitting Physician: Ema Vaughn APRN Social History Social History Type Response Sex Male Patient Care team information Personnel Name: Toño Rodriguez Address: Address: [id number] [place] [address]
--- OUTSIDE RECORDS SUMMARY | 2023-10-01 13:37 | XMS_ITS | Continuity of Care Document ---
Author Name Unknown Organization [facility] Ambulatory Clinics Address [address] [place] [address] Care Team Providers Care Telex Operator Name Role Phone Toño Rodriguez Primary Care Physician Encounter [facility] [id number] Date(s): 11/23/22 - 11/23/22 [facility] Ambulatory [facility] [address] [place] [address]- [place] Patient Care team information Care Team Personnel Name: Toño Rodriguez Position: No Access Member Role: Primary Care Physician Address: Address: [address] [address]
--- OUTSIDE RECORDS SUMMARY | 2023-10-01 13:37 | XMS_ITS | Continuity of Care Document ---
Author Name Unknown Organization [facility] Address [address] [place] [address] Care Team Providers Care Bone Cooking Operator Name Role Phone Toño Rodriguez Primary Care Physician Encounter [facility] Date(s): 10/09/22 - 10/09/22 [facility] [address] [place] [address] Discharge Disposition: Home or Self Care Attending Physician: Darnell Rosenthal MD Admitting Physician: Darnell Rosenthal MD Referring Physician: Darnell Rosenthal MD Assessment and Plan Diagnostic Tests Pending * PSA Ultrasensitive, S [place] 10/09/22 Results Laboratory List Name Date Automated Diff 10/09/22 CBC w/ Diff 10/09/22 Comprehensive Metabolic Panel 10/09/22 Testosterone [facility] 10/09/22 Most recent to oldest [Reference Range]: 1 WBC [5.0-10.0 x10^3/mcL] 5.1 x10^3/mcL (10/09/22 11:19 AM) RBC [4.6-6.0 x10^6/mcL] 5.8 x10^6/mcL (10/09/22 11:19 AM) Neutro Auto [40.0-75.0 %] 68.0 % (10/09/22 11:19 AM) Lymph Auto [20.0-50.0 %] 19.3 % *LOW* (10/09/22 11:19 AM) [place] Auto [2.0-15.0 %] 8.0 % (10/09/22 11:19 AM) Basophil Auto [0.0-1.0 %] 0.8 % (10/09/22 11: AM) BUN [7-18 mg/dL] 16 mg/dL (10/09/22 11: AM) Glucose Level [74-106 mg/dL] 100 mg/dL (10/09/22 11: AM) Potassium Level [3.5-5.1 mmol/L] 4.4 mmo l/L (10/09/22 11 AM) MCV [80.0-96.0] 83.2 (10/09/22 11 AM) AST [15-37 unit/L] 20 unit/L (10/09/22 11: AM) ALT [16-63 unit/L] 19 unit/L (10/09/22 11: AM) MCHC [31.0-35.0 g/dL] 33.7 g/dL (10/09/22 AM) Sodium Level [136-145 mmol/L] 141 mmol/L (10/09/22: AM) Hct [41.0-51.0 %] 48.6 % (10/09/22 AM) Calcium Level [8.5-10.1 mg/dL] 9.0 mg/dL (10/09/22 11: AM) Albumin Level [3.4-5.0 g/dL] 4.1 g/dL (10/09/22 11: AM) Protein Total [6.4-8.2 g/dL] 7.4 g/dL (10/09/22 11: AM) MCH [26.0-32.0 pg] 28.1 pg (10/09/22 11: AM) Neutro Absolute 3.5 x10^3/mcL *NA* (10/09/22 11: AM) Bilirubin Total [0.2-1.0 mg/dL] 0.8 mg/d L (10/09/22 11: AM) Hgb [14.0-18.0 g/dL] 16.4 g/dL (10/09/22 11: AM) Alk Phos [46-146 unit/L] 91 unit/L (10/09/22 11: AM) Platelets [130-450 x10^3/mcL] 123 x10^3/ mcL *LOW* (10/09/22 11:19 AM) CO2 [21-32 mmol/L] 26 mmol/L (10/09/22 11:19 AM) eGFR Non-AA [>=60] 79 (10/09/22 11:19 AM) eGFR AA [>=60] 79 (10/09/22 11:19 AM) Chloride Level [98-107 mmol/L] 105 mmol/ L (10/09/22 11:19 AM) RDW-CV [11.5-17.0 %] 13.1 % (10/09/22 11:19 AM) Imm Gran Auto [0.0-0.9 %] 0.4 % (10/09/22 11:19 AM) Creatinine Level [0.70-1.30 mg/dL] 0.97 mg/dL (10/09/22 11:19 AM) Testosterone [facility] [229-902 ng/dL] 348 ng/ dL 1 *NA* (10/09/22 11:19 AM) Eos, Auto [1.0-6.0 %] 3.5 % (10/09/22 11:19 AM) 1Result Comment: The results of this assay can be falsely elevated due to the consumption of Biotin. Test performed [place] [address] Social History Social History Type Response Sex Male Patient Care team information Personnel Name: Toño Rodriguez MD Address: Address: [address]
--- OUTSIDE RECORDS SUMMARY | 2023-10-01 13:37 | XMS_ITS | Continuity of Care Document ---
Author Name Unknown Organization [facility] Address [address] [place] [address] Care Team Providers Care Carpenter Inspector Name Role Phone Toño Rodriguez Primary Care Physician [facility]counter [facility] Date(s): 03/31/23 - 03/31/23 [facility] [address] [place] [address] Discharge Disposition: Home or Self Care Attending Physician: Darnell Rosenthal MD Admitting Physician: Darnell Rosenthal MD Referring Physician: Darnell Rosenthal MD Assessment and Plan Diagnostic Tests Pending * PSA Ultrasensitive, S [place] 03/31/23 Results Laboratory List Name Date Automated Diff 03/31/23 CBC w/ Diff 03/31/23 Comprehensive Metabolic Panel 03/31/23 Most recent to oldest [Reference Range]: 1 WBC [5.0-10.0 x10^3/mcL] 5.1 x10^3/mcL (03/31/23 11:23 AM) RBC [4.6-6.0 x10^6/mcL] 5.7 x10^6/mcL (03/31/23 11:23 AM) Neutro Auto [40.0-75.0 %] 65.4 % (03/31/23 11:23 AM) Lymph Auto [20.0-50.0 %] 20.5 % (03/31/23 11:23 AM) [place] Auto [2.0-15.0 %] 8.8 % (03/31/23 11:23 AM) Basophil Auto [0.0-1.0 %] 0.8 % (7/12/23 11:23 AM) BUN [7-18 mg/dL] 15 mg/dL (03/31/23 AM) Glucose Level [74-106 mg/dL] 120 mg/dL *HI* (03/31/23 AM) Potassium Level [3.5-5.1 mmol/L] 4.1 mmo l/L (03/31/23 AM) MCV [80.0-96.0 fL] 83.4 fL (03/31/23 AM) AST [15-37 unit/L] 18 unit/L (03/31/23 AM) ALT [16-63 unit/L] 19 unit/L (03/31/23 AM) MCHC [31.0-35.0 g/dL] 34.2 g/dL (03/31/23 AM) Sodium Level [136-145 mmol/L] 140 mmol/L (03/31/23 AM) Hct [41.0-51.0 %] 47.6 % (03/31/23 AM) Calcium Level [8.5-10.1 mg/dL] 9.1 mg/dL (03/31/23 AM) Albumin Level [3.4-5.0 g/dL] 3.9 g/dL (03/31/23 AM) Protein Total [6.4-8.2 g/dL] 7.4 g/dL (03/31/23 AM) MCH [26.0-32.0 pg] 28.5 pg (03/31/23 AM) Neutro Absolute 3.4 x10^3/mcL *NA* (03/31/23 AM) Bilirubin Total [0.2-1.0 mg/dL] 0.9 mg/d L (03/31/23 AM) Hgb [14.0-18.0 g/dL] 16.3 g/dL (03/31/23 AM) Alk Phos [46-146 unit/L] 87 unit/L (03/31/23 AM) Platelets [130-450 x10^3/mcL] 133 x10^3/ mcL (7/12/23 11:23 AM) CO2 [21-32 mmol/L] 26 mmol/L (03/31/23 11:23 AM) eGFR Non-AA [>=60] 81 (03/31/23 11:23 AM) eGFR AA [>=60] 81 (03/31/23 11:23 AM) Chloride Level [98-107 mmol/L] 106 mmol/ L (03/31/23 11:23 AM) RDW-CV [11.5-14.5 %] 13.6 % (03/31/23 11:23 AM) Imm Gran Auto [0.0-0.9 %] 0.4 % (03/31/23 11:23 AM) Creatinine Level [0.70-1.30 mg/dL] 0.95 mg/dL (03/31/23 11:23 AM) Eos, Auto [1.0-6.0 %] 4.1 % (03/31/23 11:23 AM) Social History Social History Type Response Sex Male Patient Care team information Care Team Personnel Name: Toño Rodriguez MD Position: No Access Member Role: Primary Care Physician Address: Address: [address] [address]- [facility] Position: No Access Member Role: Informed Provider Address: Address: [facility]/ ONCOLOGY-[address] [address]- Care Team Related Persons Name: TANYA HERRERA Address: Home [address] [place] [address], [phone]
[2023-10-01 13:45] LABS: Abs Immature Grans 0.03 10^3/uL (0.0-0.06); Absolute Basophil Count 0.04 10^3/uL (0.0-0.2); Absolute Eosinophil Count 0.23 10^3/uL (0.0-0.7); Absolute Monocyte Count 0.46 10^3/uL (0.1-0.8); Basophils % 0.7; HCT 48.7 % (40.0-50.0); HGB 16.3 g/dL (13.5-17.5); Immature Grans % 0.5; Lymphocytes % 20.8; MCH 27.9 pg (27.0-33.0); MCHC 33.5 % (32.0-36.0); MCV 83 fL (80-95); MPV 10.1 fL (8.0-11.0); Platelet Count 144 10^3/uL (130-400); RBC 5.85 10^6/uL (4.36-5.78); RDW 13.2 % (11.8-14.1); RDW-SD 39.9 fL; WBC 5.76 10^3/uL (4.4-10.8)
[2023-10-01 14:12] LABS: ALT 22 U/L (16-63); AST 19 U/L (15-37); Alkaline Phosphatase 102 U/L (46-116); Anion Gap 10.3 mmol/L (3-11); BUN 17 mg/dL (7-18); Bilirubin, Total 0.9 mg/dL (0.2-1.0); CO2 27.7 mmol/L (21.0-32.0); Calcium 9.5 mg/dL (8.5-10.1); Chloride 103 mmol/L (98-107); Estimated GFR 76.08 (mL/min/1.73m2); Glucose 132 mg/dL (74-106); Potassium 4.3 mmol/L (3.5-5.1); Sodium 141 mmol/L (136-145); Total Protein 7.8 g/dL (6.4-8.2)
[2023-10-04 12:13] LABS: PSA, Ultrasensitive 0.22 ng/mL (<= 7.2)
[2023-10-06 09:50] LABS: Testosterone, Total 316 ng/dL (240-950)
== END 2023-10-01 13:33 | disposition home or self-care (01) ==
LOC: LBO 13:35
PROVIDERS: PCP Family Medicine; Visit Provider Nurse Practitioner Family
DX: C61 Malignant neoplasm of prostate (principal)
CPT/HCPCS: 36415; 80053; 84153; 84403; 85025

== ENCOUNTER 2024-04-12 22:17 | Outpatient (REF) | payer MEDICARE, BC, SELFPAY ==
[2024-04-12 22:01] LABS: COMMENT (LAB VIEW ONLY) 231.11 mg/dL
[2024-04-12 22:04] LABS: Microalb ug/mg Crea 329.4 ug/mg Cr
== END 2024-04-12 22:18 | disposition home or self-care (01) ==
LOC: NCHCN 22:17
PROVIDERS: PCP Family Medicine; Visit Provider Family Medicine
DX: E11.9 Type 2 diabetes mellitus without complications (principal)
CPT/HCPCS: 82043; 82570

== ENCOUNTER 2024-11-13 12:52 | Outpatient (REF) | payer MEDICARE, BC, SELFPAY ==
[2024-11-13 15:42] LABS: ALT 13 U/L (16-63); AST 14 U/L (15-37); Alkaline Phosphatase 107 U/L (46-116); Anion Gap 7.3 mmol/L (3-11); BUN 14 mg/dL (7-18); Bilirubin, Total 0.77 mg/dL (0.2-1.0); CO2 27.7 mmol/L (21.0-32.0); CREATININE 0.9 mg/dL (0.70-1.30); Calcium 9.3 mg/dL (8.5-10.1); Chloride 108 mmol/L (98-107); Glucose 104 mg/dL (74-106); LDL CHOLESTEROL 110 mg/dL (<100); Potassium 4.4 mmol/L (3.5-5.1); Sodium 143 mmol/L (136-145); Total Protein 7.3 g/dL (6.4-8.2)
== END 2024-11-13 12:53 | disposition home or self-care (01) ==
LOC: NCHCN 12:52
PROVIDERS: PCP Family Medicine; Visit Provider Family Medicine
DX: E78.5 Hyperlipidemia, unspecified (principal)
CPT/HCPCS: 80053; 83721

== ENCOUNTER 2025-04-16 13:13 | Outpatient (REF) | payer MEDICARE, BC, SELFPAY ==
[2025-04-16 16:17] LABS: PROTEIN 108.4 mg/dL; Prot/Crea Ur Ratio 0.33
[2025-04-16 16:56] LABS: ALT 21 U/L (16-63); AST 18 U/L (15-37); Albumin 4.3 g/dL (3.4-5.0); Alkaline Phosphatase 93 U/L (46-116); Anion Gap 11.8 mmol/L (3-11); BUN 17 mg/dL (7-18); Bilirubin, Total 0.7 mg/dL (0.2-1.0); CO2 23.2 mmol/L (21.0-32.0); Calcium 9.3 mg/dL (8.5-10.1); Chloride 105 mmol/L (98-107); Estimated GFR 85.80 (mL/min/1.73m2); Glucose 109 mg/dL (74-106); Potassium 4.8 mmol/L (3.5-5.1); Sodium 140 mmol/L (136-145); Total Protein 7.5 g/dL (6.4-8.2); Uric Acid 7.5 mg/dL (3.5-7.2)
[2025-04-16 17:23] LABS: LDL CHOLESTEROL 72 mg/dL (<100)
[2025-04-17 05:20] LABS: COMMENT (LAB VIEW ONLY) 322.36 mg/dL
[2025-04-17 05:27] LABS: Microalb ug/mg Crea 217.5 ug/mg Cr
== END 2025-04-16 13:14 | disposition home or self-care (01) ==
LOC: NCHCN 13:13
PROVIDERS: PCP Family Medicine; Visit Provider Family Medicine
DX: E11.9 Type 2 diabetes mellitus without complications (principal); Z86.73 Personal history of transient ischemic attack (TIA), and cerebral infarction without residual deficits
CPT/HCPCS: 80053; 83721; 82043; 82565; 82570; 84156; 84550